=== PATIENT | female | born 1955 | race Caucasian/White ===

== ENCOUNTER → 2020-07-07 01:43 | Outpatient (CLI) | payer BC, SELFPAY ==
[2020-07-07 23:34] LABS: SARS-CoV-2 RNA PCR Negative
== END ==
PROVIDERS: PCP Internal Medicine; Visit Provider Internal Medicine Gastroenterology
DX: Z01.812 Encounter for preprocedural laboratory examination (principal); Z20.822 Contact with and (suspected) exposure to COVID-19
CPT/HCPCS: C9803; U0003; U0005

== ENCOUNTER 2020-07-10 01:53 | Day surgery (SDC) | payer BC, SELFPAY ==
[2020-06-29 10:16] VITALS: BMI 30.2
[2020-07-10 06:53] VITALS: BP 146/83; PULSE 88; RESP 18; TEMP 36.4; O2SAT 98; BMI 29.4
[2020-07-10 07:13] LABS: Glucose Point of Care 155 (65-105)
[2020-07-10] MEDS: LACTATED RINGERS 1,000 ML 150 ML IV CONT (07:13)
--- NOTE | 2020-07-10 07:19 | WPDANESEPPF ---
Anes - Initial Pre Proc Eval Procedure: Operation Date: 07/10/20 08:00 Proposed Procedures p Esophagogastroduodenoscopy - Lamont Helms MD Date/Time: 07/10/20 07:19 Surgeon: Lamont Helms MD Pre Op Diagnosis: Dysphagia Patient Data Age: 65 Gender: F Height: 5 ft 6 in Weight: 82.7 kg Last Vital Signs Temp 97.6 F 07/10/20 06:53 Pulse 88 07/10/20 06:53 Resp 18 07/10/20 06:53 BP 146/83 H 07/10/20 06:53 Pulse Ox 98 07/10/20 06:53 Allergies Allergy/AdvReac Type Severity Reaction Status Date / Time No Known Allergies Allergy Verified 06/29/20 10:13 Home Medications Medication Instructions Recorded Confirmed Type Berberine Hci 900 po pk BYMOUTH DAILY 04/25/19 06/29/20 History cholecalciferol (vitamin D3) 1,000 unit PO DAILY 04/25/19 06/29/20 History [Vitamin D3] cinnamon bark 500 mg PO DAILY 04/25/19 06/29/20 History coenzyme Q10 [CoQ-10] 100 mg PO DAILY 04/25/19 06/29/20 History ginkgo biloba 60 mg PO BID 04/25/19 06/29/20 History levothyroxine 125 mcg PO DAILY 04/25/19 06/29/20 History liraglutide [Victoza 2-Ru] 1.2 mg SUBCUT DAILY 04/25/19 06/29/20 History ramipril 2.5 mg PO DAILY 04/25/19 06/29/20 History rosuvastatin 5 mg PO DAILY 04/25/19 06/29/20 History qobvczakkohf-nij-gait-FA-vit K 1 tablet PO DAILY 06/29/20 06/29/20 History [Adults Multivitamin] Laboratory Tests 07/10/20 07:06 POC Capillary Glucose 155 mg/dl H mg/dl (65-105) Patient hx anesthesia problems: none Family hx anesthesia problems: none PMFSH Past Medical History Medical History (Updated 04/27/19 @ 08:49 by Anatoly Moyer MD) Diabetes Hyperlipidemia Hypothyroid Social History Social History Smoking status: Never smoker Alcohol intake: current Alcohol use details: 2 Substance use type: does not use Living arrangements: with family Spiritual care concerns: No Anes - Eval Final PreProcedure Day of Procedure 07/10/20 07:19 Patient weight: overweight Heart: regular rate and rhythm Lungs: clear to auscultation Airway: Mallampati scale class II Neurological: alert and oriented Last oral intake: >/= 8 hours ASA classification: III Emergent: no Anesthetic plan: proceed Anesthesia type and monitoring: general GIVS and standard monitoring Informed Consent: The patient's anesthetic plan and its attendant risks and benefits were discussed with the patient/family/POA. Questions were solicited and answers provided to the satisfaction of the patient/family/POA.
--- NOTE | 2020-07-10 07:21 | WPDANESEPPF ---
Anes - Initial Pre Proc Eval Procedure: Operation Date: 07/10/20 08:00 Proposed Procedures p Esophagogastroduodenoscopy - Lamont Helms MD Date/Time: 07/10/20 07:21 Surgeon: Lamont Helms MD Pre Op Diagnosis: Dysphagia Patient Data Age: 65 Gender: F Height: 5 ft 6 in Weight: 82.7 kg Last Vital Signs Temp 97.6 F 07/10/20 06:53 Pulse 88 07/10/20 06:53 Resp 18 07/10/20 06:53 BP 146/83 H 07/10/20 06:53 Pulse Ox 98 07/10/20 06:53 Allergies Allergy/AdvReac Type Severity Reaction Status Date / Time No Known Allergies Allergy Verified 06/29/20 10:13 Home Medications Medication Instructions Recorded Confirmed Type Berberine Hci 900 po pk BYMOUTH DAILY 04/25/19 06/29/20 History cholecalciferol (vitamin D3) 1,000 unit PO DAILY 04/25/19 06/29/20 History [Vitamin D3] cinnamon bark 500 mg PO DAILY 04/25/19 06/29/20 History coenzyme Q10 [CoQ-10] 100 mg PO DAILY 04/25/19 06/29/20 History ginkgo biloba 60 mg PO BID 04/25/19 06/29/20 History levothyroxine 125 mcg PO DAILY 04/25/19 06/29/20 History liraglutide [Victoza 2-Ru] 1.2 mg SUBCUT DAILY 04/25/19 06/29/20 History ramipril 2.5 mg PO DAILY 04/25/19 06/29/20 History rosuvastatin 5 mg PO DAILY 04/25/19 06/29/20 History vctviyhplach-yws-hnak-FA-vit K 1 tablet PO DAILY 06/29/20 06/29/20 History [Adults Multivitamin] Laboratory Tests 07/10/20 07:06 POC Capillary Glucose 155 mg/dl H mg/dl (65-105) Patient hx anesthesia problems: none Family hx anesthesia problems: none PMFSH Past Medical History Medical History (Updated 04/27/19 @ 08:49 by Anatoly Moyer MD) Diabetes Hyperlipidemia Hypothyroid Social History Social History Smoking status: Never smoker Alcohol intake: current Alcohol use details: 2 Substance use type: does not use Living arrangements: with family Spiritual care concerns: No Anes - Eval Final PreProcedure Day of Procedure 07/10/20 07:21 Patient weight: overweight Heart: regular rate and rhythm Lungs: clear to auscultation Airway: Mallampati scale class II Neurological: alert and oriented Last oral intake: >/= 8 hours ASA classification: III Emergent: no Anesthetic plan: proceed Anesthesia type and monitoring: general GIVS and standard monitoring Informed Consent: The patient's anesthetic plan and its attendant risks and benefits were discussed with the patient/family/POA. Questions were solicited and answers provided to the satisfaction of the patient/family/POA.
--- NOTE | 2020-07-10 07:27 | PM.HPGS ---
History of Present Illness History of Present Illness Consent: Risks, benefits, and alternatives have been discussed and questions answered. Patient agrees to proceed with procedure. Chief complaint: Dysphagia Narrative: Shaunna Betts is a 65 year old female with recent dysphagia. She was eating salmon when it became stuck in her chest. She was then unable to swallow for several hours. She denies chronic heartburn. Recently she had 1 or 2 episodes of nocturnal regurgitation PMFSH Past Medical History Medical History Diabetes Hyperlipidemia Hypothyroid Social History Social History Smoking status: Never smoker Alcohol intake: current Alcohol use details: 2 Substance use type: does not use Living arrangements: with family Spiritual care concerns: No Meds Home Medications and Allergies Home Medications Medication Instructions Recorded Confirmed Type Berberine Hci 900 po pk BYMOUTH DAILY 04/25/19 06/29/20 History cholecalciferol (vitamin D3) 1,000 unit PO DAILY 04/25/19 06/29/20 History [Vitamin D3] cinnamon bark 500 mg PO DAILY 04/25/19 06/29/20 History coenzyme Q10 [CoQ-10] 100 mg PO DAILY 04/25/19 06/29/20 History ginkgo biloba 60 mg PO BID 04/25/19 06/29/20 History levothyroxine 125 mcg PO DAILY 04/25/19 06/29/20 History liraglutide [Victoza 2-Ru] 1.2 mg SUBCUT DAILY 04/25/19 06/29/20 History ramipril 2.5 mg PO DAILY 04/25/19 06/29/20 History rosuvastatin 5 mg PO DAILY 04/25/19 06/29/20 History oyhsuudynhoi-tgx-ufds-FA-vit K 1 tablet PO DAILY 06/29/20 06/29/20 History [Adults Multivitamin] Allergies Allergy/AdvReac Type Severity Reaction Status Date / Time No Known Allergies Allergy Verified 06/29/20 10:13 Vital Signs Vital Signs - 24 hr 07/10/20 06:53 Temperature 36.4 C Pulse Rate 88 Respiratory Rate 18 Blood Pressure 146/83 H Pulse Oximetry 98 Exam Const: General: alert Orientation/consciousness: patient oriented x3 Resp: Auscultation: clear to auscultation bilaterally Cardio: Rhythm: regular rhythm GI: GI Palp: Yes Soft to palpation and No Tenderness to palpation present (GI) Neuro: General: patient oriented x3 Assessment and Plan Assessment and plan (1) Dysphagia: Code(s): R13.10 - Dysphagia, unspecified Status: Acute Assessment and Plan: EGD with possible biopsy or dilatation or cautery.
[2020-07-10] MEDS: BENZOCAINE (*SP) 60 ML SPRAY CAN (HURRICAINE) 1 SPRAY MUCOUS MEM (08:01)
[2020-07-10 08:14] VITALS: BP 144/75; PULSE 80; RESP 15; O2SAT 100
[2020-07-10 08:24] VITALS: BP 129/75; PULSE 74; RESP 14; O2SAT 98
[2020-07-10 08:34] VITALS: BP 124/74; RESP 14; O2SAT 100
== END 2020-07-10 08:55 | disposition home or self-care (01) ==
PROVIDERS: PCP Internal Medicine; Visit Provider Internal Medicine Gastroenterology
PROC: 0DJ08ZZ Inspection of Upper Intestinal Tract, Via Natural or Artificial Opening Endoscopic (ICD-10-PCS; CPT 43235; principal; 2020-07-10 08:00)
DX: K22.2 Esophageal obstruction (principal); E11.9 Type 2 diabetes mellitus without complications; E78.5 Hyperlipidemia, unspecified; E03.9 Hypothyroidism, unspecified
CPT/HCPCS: 43249; 82948; 88305; J2001; J2704; J7120